=== PATIENT | female | born 1985 | race Caucasian/White ===

== ENCOUNTER → 2020-06-04 | Outpatient (CLI) | payer BC ==
[2020-06-04 17:10] LABS: RED BLOOD COUNT 4.51 M/UL (4.00-5.10); WHITE BLOOD COUNT 8.5 K/UL (4.5-11.0)
[2020-06-04 17:26] LABS: BUN/CREATININE RATIO 19 (0-10)
[2020-06-06 10:15] LABS: VITAMIN D, 25-HYDROXY 20.1 ng/mL (30.0-100.0)
[2020-06-06 13:10] LABS: RHEUMATOID ARTHRITIS FACTOR <10.0 IU/mL (0.0-13.9)
== END ==
LOC: LAB 16:46
PROVIDERS: Nurse Practitioner Family
DX: M16.11 Unilateral primary osteoarthritis, right hip (principal); M25.551 Pain in right hip; R26.9 Unspecified abnormalities of gait and mobility; R53.83 Other fatigue
CPT/HCPCS: 36415; 80053; 85025; 85652; 86038; 86140; 86431

== ENCOUNTER 2021-01-20 09:30 | Emergency (ER) | payer BC ==
[~2021-01-20] VITALS: Ht 157.5 cm; Wt 100.7 kg
[2021-01-20 10:11] LABS: HEMOGLOBIN 14.6 gm/dl (12.3-15.3); RED BLOOD COUNT 4.72 M/UL (4.00-5.10); WHITE BLOOD COUNT 6.4 K/UL (4.5-11.0)
[2021-01-20 10:40] LABS: BUN/CREATININE RATIO 14 (0-10)
[2021-01-20 11:43] LABS: ADENOVIRUS F 40/41 Not Detected (Negative); ASTROVIRUS Not Detected (Negative); CAMPYLOBACTER Not Detected (Negative); CLOSTRIDIUM DIFFICILE TOX A/B Not Detected (Negative); E.COLI 0157 Not Detected (Negative); ENTAMOEBA HISTOLYTICA Not Detected (Negative); ENTEROAGGREGATIVE E.COLI (EAEC Not Detected (Negative); ENTEROPATHOGENIC E.COLI (EPEC) Not Detected (Negative); ENTEROTOXIGENIC E.COLI (ETEC) Not Detected (Negative); GIARDIA LAMBLIA Not Detected (Negative); NOROVIRUS GI/GII Not Detected (Negative); PLESIOMONAS SHIGELLOIDES Not Detected (Negative); ROTOVIRUS A Not Detected (Negative); SALMONELLA Not Detected (Negative); SAPOVIRUS Not Detected (Negative); SHIG/ENTEROINVAS.ECOLI (EIEC) Not Detected (Negative); SHIGA-LIK TOX.PRO.E.COLI (STEC Not Detected (Negative); VIBRIO Not Detected (Negative); VIBRIO CHOLERAE Not Detected (Negative); YERSINIA ENTEROCOLITICA Not Detected (Negative)
[2021-01-20 13:51] LABS: CRYPTOSPORIDIUM DETECTED (Negative)
[2021-01-20] MEDS ORDERED: MACROBID 100 M100 MG PO (14:18)
[2021-01-20] MEDS ORDERED: NITAZOXANIDE500 MG PO (14:18)
[2021-01-20] MEDS ORDERED: ZOFRAN4 MG PO (14:18)
== END 2021-01-20 17:42 | disposition home or self-care (01) ==
LOC: ER1 09:30
PROVIDERS: Physician Assistant
DX: U07.1 COVID-19 (principal); E86.0 Dehydration; N39.0 Urinary tract infection, site not specified; Z90.49 Acquired absence of other specified parts of digestive tract
CPT/HCPCS: 80053; 81001; 82550; 82553; 83605; 83874; 84484; 85025; 87040; 87086; 87507; 93005; 96374; 96375; 99284; J0696; J2405; J7030; M0243; U0002